=== PATIENT | male | born 1995 | race Caucasian/White ===

== ENCOUNTER 2016-07-27 15:39 | Emergency (ER) | payer OTHER ==
[~2016-07-27] VITALS: Ht 172.7 cm; Wt 67.0 kg
[2016-07-27 15:41] VITALS: BP 133/72; PULSE 136; RESP 18; TEMP 98.9; O2SAT 95
== END 2016-07-27 18:00 | disposition left against medical advice (07) ==
LOC: NED 15:39
DX: L98.9 Disorder of the skin and subcutaneous tissue, unspecified (principal)
CPT/HCPCS: 99281